=== PATIENT | female | born 1945 | race African-American/Black ===

== ENCOUNTER 2018-01-22 15:50 | Emergency (ER) | payer MEDICARE, OTHER ==
[~2018-01-22] VITALS: Ht 152.4 cm; Wt 52.0 kg
[2018-01-22] MEDS ORDERED: ACETAMINOPHEN 325MG TABLET PO ONE (22:30)
[2018-01-22 23:05] LABS: BASOPHILS % 0.5 % (0.0-2.0); EOSINOPHILS % 1.5 % (0.0-5.0); HEMATOCRIT. 36.3 % (36.0-48.0); HEMOGLOBIN. 11.9 g/dL (12.0-16.0); LYMPHOCYTES % 35.2 % (20.0-50.0); MEAN CORPUSCULAR HEMOGLOBIN 29.5 pg (28.0-32.0); MEAN CORPUSCULAR VOLUME 89.7 fL (81.0-99.0); MEAN PLATELET VOLUME 8.9 fl (7.4-10.4); MONOCYTES % 8.9 % (2.0-8.0); NEUTROPHILS % 53.9 % (40.0-76.0); PLATELET 171 x1000/uL (130-400); RED BLOOD CELL COUNT 4.04 mill/uL (4.2-5.4); RED CELL DISTRIBUTION WIDTH 14.1 % (11.6-14.6)
[2018-01-23 00:38] VITALS: BP 132/84
== END 2018-01-23 01:20 | disposition home or self-care (01) ==
LOC: ER 15:50
DX: T14.8XXA Other injury of unspecified body region, initial encounter (principal); M54.2 Cervicalgia; R07.81 Pleurodynia; R51 Headache; I10 Essential (primary) hypertension; M19.90 Unspecified osteoarthritis, unspecified site; Z88.5 Allergy status to narcotic agent; Z79.82 Long term (current) use of aspirin; W18.30XA Fall on same level, unspecified, initial encounter; Y93.9 Activity, unspecified; Y92.89 Other specified places as the place of occurrence of the external cause; Y99.8 Other external cause status
CPT/HCPCS: 36415; 70450; 71045; 72125; 85025; 99285

== ENCOUNTER 2020-11-24 14:37 | Inpatient (IN) | payer OTHER, MEDICAID ==
[~2020-11-24] VITALS: Ht 152.4 cm; Wt 51.0 kg
[2020-11-24] MEDS ORDERED: ONDANSETRON HCL 4MG/2ML INJ IV STA (15:20)
[2020-11-24] MEDS ORDERED: SODIUM CHLORIDE 0.9% 1,000 ML IV ONE (15:30)
[2020-11-24] MEDS ORDERED: PANTOPRAZOLE SODIUM 40 MG/VIAL IV ONE (15:30)
[2020-11-24 16:04] LABS: BASOPHILS % 0.7 % (0.0-2.0); EOSINOPHILS % 0.3 % (0.0-5.0); LYMPHOCYTES % 20.6 % (20.0-50.0); MEAN CORPUSCULAR VOLUME 86.6 fL (81.0-99.0); MEAN PLATELET VOLUME 8.1 fl (7.4-10.4); MONOCYTES % 10.1 % (2.0-8.0); NEUTROPHILS % 68.3 % (40.0-76.0); PLATELET 255 x1000/uL (130-400); RED BLOOD CELL COUNT 2.35 mill/uL (4.2-5.4); RED CELL DISTRIBUTION WIDTH 16.6 % (11.6-14.6)
[2020-11-24 16:08] LABS: PARTIAL THROMBOPLASTIN TIME 22.2 sec (23.4-31.0); PROTHROMBIN TIME 10.7 sec (9.6-11.0)
[2020-11-24 16:11] LABS: CHLORIDE 110 mEq/L (98-107)
[2020-11-24 16:16] LABS: HEMOGLOBIN. 6.6 g/dL (12.0-16.0)
[2020-11-24 16:17] LABS: HEMATOCRIT. 20.4 % (36.0-48.0)
[2020-11-24] MEDS ORDERED: METRONIDAZOLE 500 MG PREMIX 100 ML IV ONE (17:30)
[2020-11-24] MEDS ORDERED: CEFTRIAXONE 1 G PREMIX 50 ML IV ONE (17:30)
[2020-11-24] MEDS ORDERED: LEVOFLOXACIN 750MG PREMIX 150 ML IV ONE (17:30)
[2020-11-24] MEDS ORDERED: AZITHROMYCIN 500 MG in DEXT 5% WATER 250 ML IV ONE (17:30)
[2020-11-24 22:00] VITALS: BP 133/53
[2020-11-24 23:40] VITALS: BP 114/53
[2020-11-25] VITALS (7 sets, daily range): BP systolic 105–142; BP diastolic 51–65
[2020-11-25 00:59] LABS: HEMATOCRIT 23.8 % (36.0-48.0); HEMOGLOBIN 7.8 g/dL (12.0-16.0)
[2020-11-25] MEDS ORDERED: DEXT 5%/0.45% NACL 1000ML 1,000 ML IV SCH (01:00)
[2020-11-25] MEDS ORDERED: PANTOPRAZOLE SODIUM 40 MG/VIAL IV SCH (09:00)
[2020-11-25 10:24] LABS: BASOPHILS % 0.3 % (0.0-2.0); EOSINOPHILS % 0.8 % (0.0-5.0); HEMOGLOBIN. 9.8 g/dL (12.0-16.0); MEAN CORPUSCULAR HEMOGLOBIN 28.8 pg (28.0-32.0); MEAN CORPUSCULAR VOLUME 88.3 fL (81.0-99.0); MEAN PLATELET VOLUME 8.3 fl (7.4-10.4); MONOCYTES % 11.4 % (2.0-8.0); NEUTROPHILS % 66.5 % (40.0-76.0); PLATELET 196 x1000/uL (130-400); RED CELL DISTRIBUTION WIDTH 15.8 % (11.6-14.6)
[2020-11-25 10:54] LABS: INR 1.1; PROTHROMBIN TIME 11.3 sec (9.6-11.0)
[2020-11-25 13:04] LABS: FERRITIN 10 ng/mL (10-291)
[2020-11-25] MEDS ORDERED: ACETAMINOPHEN 325MG TABLET PO PRN (13:30)
[2020-11-25] MEDS: METRONIDAZOLE 500 MG PREMIX 100 ML IV SCH ×2 (14:11→21:10)
[2020-11-25 14:30] LABS: FOLIC ACID (FOLATE) SERUM > 20.00 ng/mL (>5.38)
[2020-11-25 14:39] LABS: VITAMIN B12 SERUM 306 pg/mL (211-911)
[2020-11-25] MEDS ORDERED: HYDRALAZINE 20MG/ML VIAL IV PRN (15:45)
[2020-11-25] MEDS ORDERED: LORAZEPAM 2MG/ML CPJ IV PRN (15:45)
[2020-11-25] MEDS ORDERED: IPRATROPIUM/ALBUTEROL 0.5-3(2.5)MG/3ML NEB HHN PRN (15:45)
[2020-11-25] MEDS ORDERED: ONDANSETRON HCL 4MG/2ML INJ IV PRN (15:45)
[2020-11-25] MEDS ORDERED: BISACODYL 10MG SUPP PR PRN (15:45)
[2020-11-25] MEDS ORDERED: PARO10TA74 PO (17:17)
[2020-11-25] MEDS ORDERED: CRES10 PO (17:20)
[2020-11-25] MEDS ORDERED: HYDR-4134 PO (17:20)
[2020-11-25] MEDS ORDERED: HYDR200T35 PO (17:20)
[2020-11-25] MEDS ORDERED: PANT40TA51 PO (17:20)
[2020-11-25] MEDS: LEVOFLOXACIN 250MG PREMIX 50 ML IV SCH (17:49)
[2020-11-25] MEDS: PANTOPRAZOLE SODIUM 40 MG/VIAL IV SCH (17:50)
[2020-11-25] MEDS: DEXT 5%/0.45% NACL 1000ML 1,000 ML IV SCH (17:53)
[2020-11-25 19:46] LABS: HEMATOCRIT 30.2 % (36.0-48.0); HEMOGLOBIN 9.9 g/dL (12.0-16.0)
[2020-11-26] VITALS: BP 111/67
[2020-11-26 04:00] VITALS: BP 102/57
[2020-11-26] MEDS: METRONIDAZOLE 500 MG PREMIX 100 ML IV SCH ×3 (06:03→21:45)
[2020-11-26 06:51] LABS: BASOPHILS % 0.6 % (0.0-2.0); EOSINOPHILS % 1.3 % (0.0-5.0); LYMPHOCYTES % 24.6 % (20.0-50.0); MEAN CORPUSCULAR HEMOGLOBIN 28.8 pg (28.0-32.0); MEAN CORPUSCULAR VOLUME 89.3 fL (81.0-99.0); MEAN PLATELET VOLUME 8.3 fl (7.4-10.4); MONOCYTES % 12.5 % (2.0-8.0); PLATELET 187 x1000/uL (130-400); RED BLOOD CELL COUNT 3.14 mill/uL (4.2-5.4); RED CELL DISTRIBUTION WIDTH 16.4 % (11.6-14.6)
[2020-11-26 08:00] VITALS: BP 101/53
[2020-11-26 08:28] LABS: CLARITY URINE CLEAR (CLEAR); COLOR URINE YELLOW (YELLOW); KETONES URINE NEGATIVE (NEGATIVE); LEUKOCYTE ESTERASE URINE TRACE (NEGATIVE); NITRITE URINE NEGATIVE (NEGATIVE); OCCULT BLOOD URINE NEGATIVE (NEGATIVE); PROTEIN URINE NEGATIVE (NEGATIVE); SPECIFIC GRAVITY URINE 1.012 (1.005-1.030); UROBILINOGEN URINE 0.2 E.U./dL (0.2-1.0)
[2020-11-26] MEDS: PANTOPRAZOLE SODIUM 40 MG/VIAL IV SCH ×2 (09:27→18:23)
[2020-11-26] MEDS: DEXT 5%/0.45% NACL 1000ML 1,000 ML IV SCH (09:28)
[2020-11-26 12:00] VITALS: BP 133/54
[2020-11-26 16:00] VITALS: BP 140/65
[2020-11-26] MEDS ORDERED: MIDAZOLAM HCL 5 MG/5 ML VIAL IV PRN (16:41)
[2020-11-26] MEDS ORDERED: FENTANYL CITRATE/PF 50MCG/ML 2ML VIAL IV PRN (16:42)
[2020-11-26] MEDS ORDERED: MIDAZOLAM HCL 5 MG/5 ML VIAL ONE (16:43)
[2020-11-26] MEDS ORDERED: FENTANYL CITRATE/PF 50MCG/ML 2ML VIAL ONE (16:43)
[2020-11-26] MEDS: SUCRALFATE 1G TABLET PO SCH ×2 (18:22→21:43)
[2020-11-26] MEDS: LEVOFLOXACIN 250MG PREMIX 50 ML IV SCH (18:22)
[2020-11-26 20:00] VITALS: BP 115/57
[2020-11-27] VITALS: BP 119/49
[2020-11-27] MEDS: DEXT 5%/0.45% NACL 1000ML 1,000 ML IV SCH ×2 (01:05→17:05)
[2020-11-27 04:00] VITALS: BP 129/47
[2020-11-27] MEDS: METRONIDAZOLE 500 MG PREMIX 100 ML IV SCH ×2 (06:14→13:33)
[2020-11-27 06:41] LABS: HEMOGLOBIN 9.5 g/dL (12.0-16.0); MEAN CORPUSCULAR HEMOGLOBIN 29.2 pg (28.0-32.0); MEAN CORPUSCULAR VOLUME 88.9 fL (81.0-99.0); PLATELET 191 x1000/uL (130-400); RED BLOOD CELL COUNT 3.26 mill/uL (4.2-5.4); RED CELL DISTRIBUTION WIDTH 16.5 % (11.6-14.6)
[2020-11-27 06:48] LABS: CHLORIDE 113 mEq/L (98-107)
[2020-11-27 08:00] VITALS: BP 124/52
[2020-11-27] MEDS: PANTOPRAZOLE SODIUM 40 MG/VIAL IV SCH ×2 (08:51→17:04)
[2020-11-27] MEDS: SUCRALFATE 1G TABLET PO SCH ×2 (08:51→11:29)
[2020-11-27 12:00] VITALS: BP 119/48
[2020-11-27] MEDS ORDERED: SUCR1TAB30 MT (12:55)
[2020-11-27] MEDS ORDERED: PROT40 MT (12:55)
[2020-11-27 16:00] VITALS: BP 133/61
[2020-11-27] MEDS: LEVOFLOXACIN 250MG PREMIX 50 ML IV SCH (17:05)
[2020-11-27] MEDS ORDERED: SUCRALFATE 1 G/10 ML UDC PO SCH (17:20)
[2020-11-27 17:21] VITALS: BP 133/61
== END 2020-11-27 19:05 | disposition home or self-care (01) | DRG 377 ==
LOC: ER 14:37 → 7WST 19:06 → EDBEDREQ 19:10 → EDBEDREQTM 19:10 → ENRESERV 20:30 → 6WST 11-25 23:16
PROVIDERS: ADMIT Internal Medicine; ATTEND Internal Medicine
PROC: 30233N1 Transfusion of Nonautologous Red Blood Cells into Peripheral Vein, Percutaneous Approach (ICD-10-PCS; principal; 2020-11-24)
PROC: 0DB78ZX Excision of Stomach, Pylorus, Via Natural or Artificial Opening Endoscopic, Diagnostic (ICD-10-PCS; 2020-11-26)
DX: K29.61 Other gastritis with bleeding (principal); J18.9 Pneumonia, unspecified organism; K57.31 Diverticulosis of large intestine without perforation or abscess with bleeding; I10 Essential (primary) hypertension; K44.9 Diaphragmatic hernia without obstruction or gangrene; Z20.822 Contact with and (suspected) exposure to COVID-19; R77.8 Other specified abnormalities of plasma proteins; D50.0 Iron deficiency anemia secondary to blood loss (chronic); N83.9 Noninflammatory disorder of ovary, fallopian tube and broad ligament, unspecified; M19.90 Unspecified osteoarthritis, unspecified site; Z79.899 Other long term (current) drug therapy; Z90.49 Acquired absence of other specified parts of digestive tract; Z88.6 Allergy status to analgesic agent
CPT/HCPCS: 36415; 71045; 74176; 76830; 76856; 80048; 80053; 81003; 82270; 82607; 82728; 82746; 83540; 83550; 83605; 83880; 84484; 85014; 85018; 85025; 85027; 85044; 85379; 85384; 85651; 86304; 86850; 86900; 86920; 88305; 93005; 93306; 99285; C1893; C9113; J0456; J1956; J2250; J2405; J3010; J3490; J7030; J7040; J7060; P9016; U0003

== ENCOUNTER 2025-09-09 16:22 | Emergency (ER) | payer MEDICAID ==
[~2025-09-09] VITALS: Ht 162.6 cm; Wt 60.0 kg
[~2025-09-09 16:22] MED LIST: CRES10 PO; HYDR200T35 PO; HYDR25TA78 PO; PANT40TA51 PO; PARO10TA74 PO; PROT40 MT; SUCR1TAB30 MT
[2025-09-09 16:28] VITALS: TEMP 36.8; O2SAT 100
[2025-09-09 17:54] LABS: CREATININE 1.2 mg/dL (0.6-1.0)
[2025-09-09 17:55] LABS: UREA NITROGEN BLOOD 20.0 mg/dL (9-23)
[2025-09-09 18:33] LABS: BASOPHILS % 0.7 % (0.0-2.0); EOSINOPHILS % 0.9 % (0.0-5.0); HEMATOCRIT. 37.6 % (36.0-48.0); HEMOGLOBIN. 12.3 g/dL (12.0-16.0); LYMPHOCYTES % 25.0 % (20.0-50.0); MEAN PLATELET VOLUME 9.4 fl (7.4-10.4); MONOCYTES % 7.5 % (2.0-8.0); NEUTROPHILS % 65.9 % (40.0-76.0); PLATELET 181 x1000/uL (130-400); RED BLOOD CELL COUNT 4.04 mill/uL (4.2-5.4); RED CELL DISTRIBUTION WIDTH 13.4 % (11.6-14.6)
[2025-09-09 23:32] VITALS: BP 157/66; PULSE 71; RESP 16; O2SAT 98
[2025-09-09] MEDS: IOHEXOL-350 100 ML BOTTLE ONE (23:41)
[2025-09-10] MEDS ORDERED: IOHEXOL-350 100 ML BOTTLE ONE (08:59)
== END 2025-09-09 23:41 | disposition home or self-care (01) ==
LOC: ER 16:22
DX: M79.604 Pain in right leg (principal); I10 Essential (primary) hypertension; M19.90 Unspecified osteoarthritis, unspecified site; F19.10 Other psychoactive substance abuse, uncomplicated; Z88.5 Allergy status to narcotic agent; Z90.49 Acquired absence of other specified parts of digestive tract; Z79.899 Other long term (current) drug therapy
CPT/HCPCS: 99285; 93970; 75635; 80048; 85025; 36415; Q9967